=== PATIENT | female | born 1970 | race Caucasian/White ===

== ENCOUNTER 2016-10-05 18:27 | Emergency (ER) | payer OTHER ==
[~2016-10-05] VITALS: Ht 157.5 cm; Wt 142.0 kg
[~2016-10-05 18:27] MED LIST: GOOD SENSE ASPI81 M3 PO; HYDROCHLOROTHIA1 POW PO; LEVOTHYROXIN0.025 M2 PO; LOSARTAN POTASS25 M1 PO; METOPROLOL SUCC25 M1 PO; NAPROSYN500 MG PO; PRI20 PO; PROVENTIL0.09 MG/A1; SIMVASTATIN10 M1 PO; [UNRECOGNIZED DRUG - OTHER] PO
[2016-10-05 21:49] VITALS: BP 150/98
== END 2016-10-05 21:49 | disposition home or self-care (01) ==
LOC: ED 18:27
DX: S93.492A Sprain of other ligament of left ankle, initial encounter (principal); J45.909 Unspecified asthma, uncomplicated; I10 Essential (primary) hypertension; Z88.5 Allergy status to narcotic agent; Z79.899 Other long term (current) drug therapy; Z79.82 Long term (current) use of aspirin; X50.1XXA Overexertion from prolonged static or awkward postures, initial encounter; Y93.01 Activity, walking, marching and hiking; Y92.89 Other specified places as the place of occurrence of the external cause; Y99.8 Other external cause status

== ENCOUNTER 2017-01-28 13:24 | Inpatient (IN) | payer OTHER ==
[~2017-01-28] VITALS: Ht 157.5 cm; Wt 141.7 kg
[~2017-01-28 13:24] MED LIST changes: -METOPROLOL SUCC25 M1 PO; +TOPROL XL25 MG PO
--- NOTE | 2017-01-28 13:48 | NUR ---
REC'D WALK IN PATIENT, AAOX4, GUEST AT THE BEDSIDE. C/O CP FOR PAST 3 DAYS, NON PROVOKED, RADIATES TO LEFT SIDE, 5/10 PAIN. ON RA, BREATHING E/U, NO SOB NOTED. WILL CONTINUE TO MONITOR.
--- NOTE | 2017-01-28 13:52 | NUR ---
XR IN TO SEE PT
[2017-01-28 14:12] LABS: BASOPHIL % 0.6 % (0-2); PLATELET COUNT 278 x10^3mcL (130-400)
[2017-01-28 14:24] LABS: RED CELL DISTRIBUTION WIDTH 14.6 % (11.5-14.5)
[2017-01-28 14:33] LABS: CALCIUM 8.5 mg/dL (8.5-10.1); CARBON DIOXIDE 31.6 mmol/L (21-32); CHLORIDE SERUM 102 mmol/L (98-107); CREATININE SERUM 0.8 mg/dL (0.6-1.0); GFR1 > 60 mL/min; GLUCOSE SERUM 120 mg/dL (74-106); SODIUM SERUM 139 mmol/L (136-145)
[2017-01-28 14:38] LABS: ALKALINE PHOSPHATASE 100 U/L (46-116); ALT/SGPT 62 U/L (14-59); BILIRUBIN TOTAL 0.5 mg/dL (0.20-1.00); TOTAL PROTEIN, SERUM 7.6 g/dL (6.4-8.2)
[2017-01-28 14:43] LABS: POTASSIUM SERUM 3.8 mmol/L (3.5-5.1)
[2017-01-28 14:44] LABS: AST/SGOT 47 U/L (15-37)
--- NOTE | 2017-01-28 15:36 | NUR ---
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
[2017-01-28] MEDS ORDERED: LEVOTHYROXIN0.137 MG PO (15:37)
[2017-01-28] MEDS ORDERED: MONTELUKAST SOD10 M1 PO (15:38)
[2017-01-28] MEDS ORDERED: HYDROCHLOROTHIA25 MG PO (15:39)
--- NOTE | 2017-01-28 15:55 | NUR ---
[facility] SWAB COLLECTED AND SENT TO LAB, RESIDENT AT BEDSIDE FOR EVAL
--- NOTE | 2017-01-28 16:02 | NUR ---
REPORT GIVEN TO ELAN HOUSTON TELE FLOOR TO ASSUME CARE OF PT AFTER TRANSPORT TO TELE
[2017-01-28 16:24] LABS: CHOLESTEROL/HDL RATIO 3.7; MAGNESIUM 1.8 mg/dL (1.8-2.4); PHOSPHOROUS 3.1 mg/dL (2.5-4.9)
[2017-01-28 16:27] VITALS: BP 139/85
[2017-01-28 16:30] LABS: T3 TOTAL 1.09 ng/mL
[2017-01-28 16:33] LABS: FREE T4 1.06 ng/dL (0.76-1.46); FREE THYROXINE INDEX 3.2 ug/dL (1.4-4.5); T4(THYROXINE) 9.6 ug/dL (4.7-13.3)
--- NOTE | 2017-01-28 16:57 | NUR ---
RECEIVED PT FROM ED VIA BERNARDO. ORIENTED PT TO ROOM AND SURROUNDINGS. IV NOTED TO RAC PATENT AND INTACT .TELE 11 PLACED ON PT READING NSR. INSTRUCTED PT ON THE USE OF CALL LIGHT FOR ASSISTANCE. ENDORSED PT TO PRIMARY NURSE CELSO
--- NOTE | 2017-01-28 17:27 | NUR ---
ABDOMEN US COMPLETED; ICE WATER OFFERED PER PATIENT. NEEDS ANTICIPATED.
--- NOTE | 2017-01-28 18:10 | NUR ---
PATIENT EATING HER DINNER AT THIS TIME, NO COMPLAINT. NEEDS ANTICIPATED.
--- NOTE | 2017-01-28 20:09 | NUR ---
PT CURRENTLY RESTING IN BED, NO ACUTE DISTRESS. A/O X4. TELE #11 SHOWING SINUS RHYTHM, PT STATES CHEST PAIN 4/10 RADIATING TO LEFT SHOULDER, MEDICATED PER EMAR. PULSES PALPABLE IN ALL EXTREMITIES, NO EDEMA NOTED. LUNG SOUNDS CTA BILATERALLY, BOWEL SOUNDS ACTIVE, LAST BM 01/28/17. VOIDING WELL. AMBULATORY. SKIN INTACT. IV PATENT AND INTACT. BED IN LOWEST POSITION, SIDE RAILS UP X2, SCDS IN PLACE, CALL LIGHT WITHIN REACH. WILL CONTINUE TO MONITOR.
[2017-01-28 21:53] VITALS: BP 128/79
--- NOTE | 2017-01-29 01:09 | NUR ---
PT CURRENTLY RESTING IN BED, NO ACUTE DISTRESS. WILL CONTINUE TO MONITOR.
[2017-01-29 05:52] VITALS: BP 143/99
--- NOTE | 2017-01-29 06:41 | NUR ---
PT SLEPT PERIODICALLY THROUGHOUT NIGHT, NO ACUTE DISTRESS. ALL NEEDS MET AND ATTENDED TO. NO SIGNIFICANT CHANGES. IV PATENT AND INTACT. BED IN LOWEST POSITION, SIDE RAIL UP X2, SCDS IN PLACE, CALL LIGHT WITHIN REACH. WILL ENDORSE CARE TO ONCOMING NURSE.
--- NOTE | 2017-01-29 07:33 | NUR ---
PT RECEIVED DURING CHANGE OF SHIFT, ASLEEP BUT AROUSABLE, TELE 11 NSR, PULSES PRESENT, LUNGS CTA ON RA, BREATHING EVEN AND UNLABORED, BOWEL SOUNDS ACTIVE, LBM 01/28/17, ABLE TO VOID, AMBULATORY, SKIN WARM/DRY/INTACT, NO INDICATION OF PAIN, IV TO RAC INFUSING NS AT 100ML/HR, IV WNL, CALL LIGHT WITHIN REACH, WILL CONTINUE TO MONITOR.
[2017-01-29 07:42] LABS: BASOPHIL % 0.4 % (0-2); PLATELET COUNT 255 x10^3mcL (130-400)
[2017-01-29 07:45] LABS: RED CELL DISTRIBUTION WIDTH 14.9 % (11.5-14.5)
[2017-01-29 07:54] LABS: CALCIUM 8.5 mg/dL (8.5-10.1); CARBON DIOXIDE 30.2 mmol/L (21-32); CHLORIDE SERUM 103 mmol/L (98-107); CREATININE SERUM 0.8 mg/dL (0.6-1.0); GFR1 > 60 mL/min; GLUCOSE SERUM 114 mg/dL (74-106); POTASSIUM SERUM 3.8 mmol/L (3.5-5.1); SODIUM SERUM 140 mmol/L (136-145)
--- NOTE | 2017-01-29 08:10 | NUR ---
PT DENIES SOB, DENIES PAIN, EATING BREAKFAST, BP STABLE, WILL ADMINISTER BP MEDS SCHEDULED, CALL LIGHT WITHIN REACH, WILL CONTINUE TO MONITOR.
[2017-01-29 08:15] VITALS: BP 140/84
--- NOTE | 2017-01-29 09:01 | NUR ---
PT DENIES SOB, DENIES PAIN, MEDICATIONS GIVEN, CALL LIGHT WITHIN REACH, WILL CONTINUE TO MONITOR.
[2017-01-29 09:17] VITALS: BP 130/79
--- NOTE | 2017-01-29 10:35 | NUR ---
DR. CLARK AND RESIDENTS MAKING ROUNDS, PLAN OF CARE DISCUSSED.
--- NOTE | 2017-01-29 11:16 | NUR ---
PT DENIES SOB, DENIES PAIN, BS 130 NO COVERAGE NEEDED, CALL LIGHT WITHIN REACH, WILL CONTINUE TO MONITOR.
--- NOTE | 2017-01-29 12:15 | NUR ---
PT DENIES SOB, DENIES PAIN, CALL LIGHT WITHIN REACH, WILL CONTINUE TO MONITOR.
--- NOTE | 2017-01-29 13:15 | NUR ---
PT DENIES SOB, C/O H/A 05/21, MEDICATED PER EMAR, CALL LIGHT WITHIN REACH, WILL CONTINUE TO MONITOR.
[2017-01-29 13:21] VITALS: BP 140/84
--- NOTE | 2017-01-29 14:10 | NUR ---
PT DENIES SOB, STATES MEDICATION EFFECTIVE, DENIES H/A, CALL LIGHT WITHIN REACH, WILL CONTINUE TO MONITOR.
--- NOTE | 2017-01-29 14:33 | NUR ---
REPORT GIVEN TO JILLIAN ANSARI, JILLIAN ANSARI TO ASSUM PT CARE.
--- NOTE | 2017-01-29 14:40 | NUR ---
ASSUMED PT CARE FROM ELAN MILLER. RECD PT AOX4. RESP EASY AND REG. DENIES CP OR OTHER DISCOMFORT. REPORTS RELIEF OF HEADACHE. NSS AT 100 ML/HR INFUSING; RAC SITE PATENT AND WITHOUT INFILTRATON. SCDS TO BLE. VISITORS IN THE ROOM. WILL CONTINUE TO MONITOR STATUS. SAFETY AND FALL PRECAUTION REINFORCED.
--- NOTE | 2017-01-29 16:53 | NUR ---
PT AMBULATED TO THE BATHROOM WITH STABLE GAIT.
[2017-01-29 17:00] VITALS: BP 155/76
--- NOTE | 2017-01-29 18:32 | NUR ---
NO COMPLAINTS VOICED; NEEDS ATTENDED; NO NEW ACUTE CHANGE IN STATUS; WILL CONTINUE TO MONITOR STATUS.
[2017-01-29 20:50] VITALS: BP 132/82
--- NOTE | 2017-01-29 21:52 | NUR ---
STS HAVING PAIN LIKE PRESSURE TO LEFT CHEST, NORCO 1 TAB PO GIVEN. IVF NS TO RAC INFUSING WELL AT 100ML/HR. WILL CONTINUE TO MONITOR.
[2017-01-30 05:50] VITALS: BP 137/76
[2017-01-30 06:44] LABS: CALCIUM 8.1 mg/dL (8.5-10.1); CARBON DIOXIDE 28.2 mmol/L (21-32); CHLORIDE SERUM 106 mmol/L (98-107); CREATININE SERUM 0.7 mg/dL (0.6-1.0); GFR1 > 60 mL/min; GLUCOSE SERUM 106 mg/dL (74-106); POTASSIUM SERUM 3.9 mmol/L (3.5-5.1); SODIUM SERUM 142 mmol/L (136-145)
--- NOTE | 2017-01-30 06:45 | NUR ---
NO ANY DISTRESS THROUGHOUT SHIFT. NORCO WAS GIVEN X1 FOR PRESSURE PAIN TO LEFT CHEST WITH GOOD RELIEF. BRP. URINE SPECIMEN SENT TO LAB. IVF NS TO RAC INFUSING WELL.
--- NOTE | 2017-01-30 07:19 | NUR ---
PT RECEIVED DURING CHANGE OF SHIFT, ASLEEP BUT AROUSABLE, TELE 11, NSR, PULSES PRESENT, LUNGS CTA ON RA, BREATHING EVEN AND UNLABORED, BOWEL SOUNDS ACTIVE, LBM 01/28/17, ABLE TO VOID, AMBULATORY, SKIN WARM/DRY/INTACT, NO INDICATION OF PAIN, IV TO RAC INFUSING NS AT 50ML/HR, IV WNL, CALL LIGHT WITHIN REACH, WILL CONTINUE TO MONITOR.
[2017-01-30 08:20] LABS: microscopic required? YES; urine erythrocyte TRACE (NEGATIVE)
--- NOTE | 2017-01-30 08:28 | NUR ---
PT DENIES SOB, DENIES PAIN, MEDS GIVEN, RT AT BEDSIDE, CALL LIGHT WITHIN REACH, WILL CONTINUE TO MONITOR.
[2017-01-30 08:37] LABS: AMPHETAMINE QUAL UR NONE DETECTED (NEG <=1000)
--- NOTE | 2017-01-30 09:04 | NUR ---
PT DENIES SOB, DENIES PAIN, CALL LIGHT WITHIN REACH, WILL CONTINUE TO MONITOR.
[2017-01-30 09:36] VITALS: BP 148/88
--- NOTE | 2017-01-30 10:25 | NUR ---
PT DENIES SOB, DENIES PAIN, CALL LIGHT WITHIN REACH, WILL CONTINUE TO MONITOR.
--- NOTE | 2017-01-30 11:32 | NUR ---
PT DENIES SOB, DENIES PAIN, BS 93 NO COVERAGE NEEDED, CALL LIGHT WITHIN REACH, WILL CONTINUE TO MONITOR.
[2017-01-30 11:41] VITALS: BP 148/88
--- NOTE | 2017-01-30 12:14 | NUR ---
PT C/O H/A, DENIES SOB, MEDICATED PER EMAR, CALL LIGHT WITHIN REACH, WILL CONTINUE TO MONITOR.
[2017-01-30] MEDS ORDERED: HYDROCHLOROTHIA50 MG PO (12:49)
[2017-01-30] MEDS ORDERED: NAPROSYN500 MG PO (12:58)
[2017-01-30] MEDS ORDERED: NORCO1 TA2 PO (12:59)
[2017-01-30] MEDS ORDERED: COLACE100 MG PO (13:17)
--- NOTE | 2017-01-30 13:47 | NUR ---
PT RECEIVED DISCHARGE INSTRUCTIONS, VERBALIZED UNDERSTANDING, ALL QUESTIONS ANSWERED, E-SCRIPTS EXPLAINED, SCIRPTS GIVEN, TELE DC'D, ARMBANDS DC'D, IV DC'D CATHETER INTACT, PT AWARE TO NOTIFY STAFF WHEN READY TO BE ESCORTED DOWNSTAIRS.
--- NOTE | 2017-01-30 14:26 | NUR ---
PT ESCORTED DOWNSTAIRS BY PRIMARY RN.
== END 2017-01-30 14:30 | disposition home or self-care (01) | DRG 203 ==
LOC: ED 13:24 → DU 15:28
PROVIDERS: Emergency Medicine; ADMIT Family Medicine Sports Medicine
DX: M94.0 Chondrocostal junction syndrome [Tietze] (principal); I42.9 Cardiomyopathy, unspecified; E44.0 Moderate protein-calorie malnutrition; Z68.43 Body mass index [BMI] 50.0-59.9, adult; E66.01 Morbid (severe) obesity due to excess calories; I07.1 Rheumatic tricuspid insufficiency; I10 Essential (primary) hypertension; E03.9 Hypothyroidism, unspecified; I25.2 Old myocardial infarction; E78.00 Pure hypercholesterolemia, unspecified; Z88.5 Allergy status to narcotic agent; Z88.8 Allergy status to other drugs, medicaments and biological substances; I25.10 Atherosclerotic heart disease of native coronary artery without angina pectoris; J45.909 Unspecified asthma, uncomplicated; Z83.3 Family history of diabetes mellitus; Z82.49 Family history of ischemic heart disease and other diseases of the circulatory system; R73.03 Prediabetes
CPT/HCPCS: 82962; 83880; 84439; J7030; J7613; Q0092

== ENCOUNTER 2020-05-05 21:03 | Emergency (ER) | payer OTHER ==
[~2020-05-05] VITALS: Ht 157.5 cm; Wt 131.1 kg
[~2020-05-05 21:03] MED LIST changes: +COLACE100 MG PO; +HYDROCHLOROTHIA25 MG PO; +HYDROCHLOROTHIA50 MG PO; +LEVOTHYROXIN0.137 MG PO; +MONTELUKAST SOD10 M1 PO; +NORCO1 TA2 PO
[2020-05-05 21:27] VITALS: Ht 157.5 cm; Wt 131.1 kg
[2020-05-05 22:45] LABS: BASOPHIL % 1.2 % (0.2-1.3)
[2020-05-05 23:02] LABS: BILIRUBIN TOTAL 0.5 mg/dL (0.20-1.00); CALCIUM 9.2 mg/dL (8.5-10.1); CARBON DIOXIDE 27.8 mmol/L (21-32); CREATININE SERUM 1.3 mg/dL (0.6-1.0); POTASSIUM SERUM 4.2 mmol/L (3.5-5.1); TOTAL PROTEIN, SERUM 7.9 g/dL (6.4-8.2)
[2020-05-05 23:04] LABS: ALBUMIN 2.7 g/dL (3.4-5.0)
[2020-05-05 23:09] LABS: RED CELL DISTRIBUTION WIDTH 18.3 % (12.3-17.7)
[2020-05-05 23:13] LABS: PLATELET COUNT 524 x10^3mcL (179-408)
[2020-05-06] MEDS ORDERED: KEF500 PO (01:14)
[2020-05-06] MEDS ORDERED: ZOF4 PO (01:14)
[2020-05-06 01:17] LABS: UA SPECIFIC GRAVITY <=1.005 (1.005-1.035); microscopic required? YES; urine erythrocyte 3+ (NEGATIVE)
[2020-05-06 04:26] VITALS: BP 133/88
== END 2020-05-06 04:26 | disposition home or self-care (01) ==
LOC: ED 21:03
PROVIDERS: Emergency Medicine
DX: E11.65 Type 2 diabetes mellitus with hyperglycemia (principal); N39.0 Urinary tract infection, site not specified; R42 Dizziness and giddiness; J45.909 Unspecified asthma, uncomplicated; I10 Essential (primary) hypertension; E78.00 Pure hypercholesterolemia, unspecified; Z88.5 Allergy status to narcotic agent
CPT/HCPCS: 82962; J0696; J1815; J2405; J7030